=== PATIENT | male | born 1990 | race Caucasian/White ===

== ENCOUNTER 2024-05-03 23:05 | Emergency (ER) | payer OTHER | END 2024-05-03 23:34 | LOC: MW.ED 23:05 | DX: Z02.89 Encounter for other administrative examinations (principal); Z75.8 Other problems related to medical facilities and other health care; V89.2XXA Person injured in unspecified motor-vehicle accident, traffic, initial encounter | CPT/HCPCS: 99283 ==

== ENCOUNTER 2025-02-22 00:31 | Emergency (ER) | payer SELFPAY ==
[2025-02-22] MEDS: Ketorolac 60 MG/2 ML SDV IM ONE (00:50)
== END 2025-02-22 01:26 | disposition home or self-care (01) ==
LOC: MW.ED 00:31
DX: S39.012A Strain of muscle, fascia and tendon of lower back, initial encounter (principal); X58.XXXA Exposure to other specified factors, initial encounter
CPT/HCPCS: 96372; 99283; A9270; J1885; J2270